=== PATIENT | female | born 1990 | race Caucasian/White ===

== ENCOUNTER 2017-03-10 12:59 | Emergency (ER) | payer MEDICAID ==
[~2017-03-10] VITALS: Ht 160 cm; Wt 59.0 kg
[2017-03-10 13:00] VITALS: BP_SYST 106
--- NOTE | 2017-03-10 13:10 | NUR ---
Tasha [employer] examined pt in triage.
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
[2017-03-10] MEDS ORDERED: KETOROLAC TROMETHAMINE 60 MG/2 ML VIAL IM ONE (14:45)
--- NOTE | 2017-03-10 14:56 | NUR ---
Pain medication was given to pt, tolerated it well. No noted adverse reaction, will continue to monitor.
[2017-03-10 15:20] VITALS: BP_SYST 110
--- NOTE | 2017-03-10 15:20 | NUR ---
Patient given written and verbal discharge instructions and verbalizes understanding. ER MD discussed with patient the results and treatment provided. Patient in stable condition. ID arm band removed. IV catheter removed intact and dressing applied, no active bleeding. Rx of zofran, motrin, soma given. Patient educated on pain management and to follow up with PMD. Pain Scale 3. Opportunity for questions provided and answered.
== END 2017-03-10 15:20 | disposition home or self-care (01) ==
LOC: SED 12:59
DX: S16.1XXA Strain of muscle, fascia and tendon at neck level, initial encounter (principal); F07.81 Postconcussional syndrome; V89.2XXA Person injured in unspecified motor-vehicle accident, traffic, initial encounter; Y93.89 Activity, other specified; Y92.828 Other wilderness area as the place of occurrence of the external cause; Y99.8 Other external cause status
CPT/HCPCS: 70450; 72125; 81025; 96372; 99284; J1885